=== PATIENT | male | born 1950 | race Caucasian/White ===

== ENCOUNTER 2016-06-11 14:45 | Inpatient (IN) ==
[2016-06-11] MEDS ORDERED: SODIUM CHLORIDE 0.9% 1,000 ML IV STA (17:23)
[2016-06-11 17:30] LABS: Apearance,Urine CLEAR (Clear); Bacteria,Urine Occasional /HPF (Few); Bilirubin,Urine Negative (Negative); Blood, Urine Negative (Negative); Glucose,Urine (UA) >=500 mg/dL (Negative); Ketones,Urine 20 mg/dL (Negative); Nitrite,Urine Negative (Negative); Protein,Urine Negative; RBC,Urine 1 /HPF (0-4); Urine Color Straw (Yellow); Urine Specific Gravity 1.024 (1.001-1.035); Urine Urobilinogen < 2.0 EU/DL (0.2-1.0); WBC,Urine <1 /HPF (0-6)
[2016-06-11 17:32] LABS: Basophils % 0.3 % (0.0-0.8); Eosinophils % 0.3 % (0.00-10.9); Hematocrit 45.9 VOL% (42.0-52.0); Hemoglobin 15.4 GM/DL (14.0-18.0); Immature Granulocytes % 0.5 %; Immature Granulocytes Absolute 0.05 #; Lymphocytes # 0.8 10*3/uL (1.4-4.0); Lymphocytes % 7.3 % (21.2-54.2); Mean Corpuscular HGB Conc 33.6 GM/DL (32-36); Mean Corpuscular Hemoglobin 29 PG (27-34); Mean Corpuscular Volume 86.3 FL (87-102); Mean Platelet Volume 10.4 FL (9.6-12.0); Monocytes # 0.4 10*3/uL (0.11-0.8); Monocytes % 3.6 % (1.7-12.7); Neutrophils # 9.3 10*3/uL (1.4-7.4); Platelet Count 273 10*3/uL (130-400); Red Blood Count 5.32 10*6/uL (3.8-5.5); Red Cell Distribution Width 13.2 % (9.3-17.3); White Blood Count 10.5 10*3/uL (4.5-13.71)
[2016-06-11 17:38] LABS: Barbiturates Screen,Urine Negative (Negative); Benzodiazepines Screen,Urine Negative (Negative); Cannabinoid Screen,Urine Negative (Negative); Opiate Screen,Urine Negative (Negative); Phencyclidine Screen,Urine Negative (Negative)
--- NOTE | 2016-06-11 17:53 | CT Report ---
CT head/brain wo con Indication: Altered metal status. CT BRAIN WITHOUT CONTRAST DLP: 1081 mGy*cm Comparison: Most recent 05/07/16. Date of admission: 06/11/2016. Technique: Axial noncontrast CT images of the brain were obtained. Findings: No acute hemorrhage, mass or mass effect. Generalized atrophy and patchy periventricular white matter hypodensity is present throughout both convexities. Cortical li-white junction and structures of the basal ganglia are well-defined. No bone lesions are shown. Internal auditory canals are symmetric. Mild mucosal thickening and postoperative changes both maxillary sinuses again shown. Impression: No acute intracranial pathology. Generalized atrophy and changes consistent with microvascular disease. Mild bilateral maxillary sinusitis. PROCEDURE INTERPRETED AT [facility] Final Report Signed by: Mikhail Enriquez M.D.
[2016-06-11 17:57] LABS: Albumin 3.8 G/DL (3.4-5.0); Bilirubin,Total 0.4 MG/DL (0.2-1.0); Calcium 8.9 MG/DL (8.5-10.1); Total Protein 7.1 G/DL (6.4-8.3)
[2016-06-11 17:58] LABS: Troponin I Only 0.016 NG/ML (0.00-0.045)
--- NOTE | 2016-06-11 19:35 | Emergency Department Note ---
Sal Almanza Brittany, am scribing for, and in the presence of, Benjamín Vega Jr., MD 15:19. Silvia Almanza Marvin Jr., MD, personally performed the services described in this documentation, ascribed by Kimberly Huang in my presence, and it is both accurate and complete 935 . Arrival - Arrival Chief Complaint: Altered Mental Status Stated Complaint: AMS ED Nursing Triage Note: Pt brought by EMS for pt being found this afternoon with altered mental status. Pt will respond to verbal stimuli. Mode of Arrival: Stretcher Limitations: Altered Mental Status Source: Patient, RN Notes Reviewed - History of Present Illness HPI Narrative: Patient is a 66 y/o white male presenting to the ED by EMS for further evaluation of Altered Mental Status. Per triage note patient was found unresponsive and EMS was called. Patient was brought in unresponsive, and in room patient is unresponsive and unable to provide much history. History is also limited due to no family being present to provides patient's history. During physical exam patient wakes up momentarily to say that he is having a headache and that he drinks "a little bit" of alcohol. While sleeping patient had a blood pressure of 179/104 and oxygen saturation of 94%. Patient appears to have the look of a chronic alcoholic. Patient has no other complaint/pain in the ED. Allergies/Adverse Reactions: Allergies Allergy/AdvReac Type Severity Reaction Status Date / Time No Known Allergies Allergy Verified 05/07/16 01:04 Home Medications: Home Medications Medication Instructions Recorded Confirmed Type Amlodipine Besylate/Benazepril 1 each PO DAILY 01/02/16 01/05/16 History [Amlodipine-Benazepril 10-40 mg] Gabapentin 300 mg PO BID 01/02/16 01/05/16 History Levothyroxine Tab [Synthroid Tab] 75 mcg PO DAILY 01/02/16 01/02/16 History hydroCHLOROthiazide 25 mg PO DAILY 01/02/16 01/05/16 History [Hydrochlorothiazide] Atorvastatin [Lipitor] 20 mg PO DAILY 01/05/16 01/05/16 History Insulin Detemir [Levemir] 14 unit SUBCUT DAILY #0 01/06/16 01/05/16 Rx Review of System - Review of System ROS unobtainable: due to mental status 12 point system: reviewed and no additional remarkable complaints except as stated - Review of System Neurological: Present: headache Medical,Surgical,& Family Hx - Medical History Cardio: History of: Hypertension Neurology: History of: Vertigo Endocrine: History of: Diabetes Mellitus (IDDM), Diabetes Mellitus (NIDDM) Respiratory: History of: Asthma (current, onset from smoke), Obstructive Sleep Apnea Genitourinary: History of: Prostate Problems (pt states sometimes have burning during urination) Musculoskeletal: History of: Back/Neck Problems (joint pains to hips and knees) No history of: Amputation Comment Only: Musculoskeletal Problems (history of falls) - Family History Family History: Reports;: Family Cancer (mother (kidneys) father (prostate)) - Social History Smoking Status: Former smoker Exam Physical Examination: General: Well-developed well-nourished, no apparent distress. She acts intoxicated. Eye sluggish, will follow commands but slowly, will talk with slurred speech but moves all his limbs. Head: Normocephalic, atraumatic. Eyes: PERRLA, EOMI. Nose: No obvious acute deformities or discharge. Mouth: No obvious acute injury. This membranes are dry Neck: Full range of motion without obvious pain. No midline tender to palpation. Lymphatic: no significant lymphadenopathy noted. Lungs: Clear to auscultation bilaterally, normal and equal air movement bilaterally, no obvious rales or wheezing. Heart: regular rate and rhythm, no obvious mummers. Abdomen: Soft nontender, nondistended, normal active bowel sounds. Skin: No obivous acute lesions noted Musculoskeletal: No gross deformities. Neurological: Slurring his speech but otherwise no focal neurological findings. Moves all limbs. Will follow some directions. Psychiatric: Intoxicated appearing : Deferred Vital Signs: Vital Signs Temperature 97.7 F 06/11/16 14:52 Pulse Rate 90 06/11/16 14:52 Respiratory Rate 22 06/11/16 14:52 Blood Pressure 183/107 06/11/16 14:52 O2 Sat by Pulse Oximetry 94 L 06/11/16 14:52 Course Course Narrative: Pharyngeal diagnosis: Alcohol or drug abuse, stroke, infection - Reevaluation(s) Reevaluation #1: I discussed this patient with the hospitalist who accepts this admission. They will come to the ER and see this patient Time: 19:35 Results - Labs CBC & BMP: 06/11/16 17:01 06/11/16 17:01 Lab Results: I have reviewed the patients labs Labs: Laboratory Tests 06/11/16 06/11/16 17:01 17:12 WBC 10.5 RBC 5.32 Hgb 15.4 Hct 45.9 MCV 86.3 L MCH 29 MCHC 33.6 RDW 13.2 Plt Count 273 MPV 10.4 Neut % (Auto) 88.0 H Lymph % (Auto) 7.3 L [place] % (Auto) 3.6 Eos % (Auto) 0.3 Baso % (Auto) 0.3 Neut # (Auto) 9.3 H Lymph # (Auto) 0.8 L [place] # (Auto) 0.4 Eos # (Auto) 0.0 Baso # (Auto) 0.0 Immature Gran % 0.5 Nucleated RBC % 0.0 Immature Gran # 0.05 Nucleated RBCs # 0.00 Urine Color Straw Urine Appearance Clear Urine pH 7.0 Ur Specific Marcus 1.024 Urine Protein Negative Urine Glucose (UA) >=500 Urine Ketones 20 Urine Blood Negative Urine Nitrate Negative Urine Bilirubin Negative Urine Urobilinogen < 2.0 H Urine Leukocytes Negative Urine RBC 1 Urine WBC <1 Urine Bacteria Occasional Laboratory Tests 06/11/16 17:12 Urine Opiates Screen Negative Ur Barbiturates Screen Negative Ur Phencyclidine Scrn Negative U Amphetamine/Methamph Positive H U Benzodiazepines Scrn Negative U Cocaine Metab Screen Negative U Cannabinoids Screen Negative Laboratory Tests 06/11/16 06/11/16 17:01 17:01 Sodium 136 Potassium 4.0 Chloride 102 Carbon Dioxide 26 Anion Gap 12.0 BUN 15 Creatinine 0.70 GFR Calculation 112 BUN/Creatinine Ratio 21.00 H Glucose 206 H Calculated Osmolality 278.0 Calcium 8.9 Total Bilirubin 0.40 AST 9 ALT 13 L Alkaline Phosphatase 119 H Troponin I 0.016 Total Protein 7.1 Albumin 3.8 Globulin 3.3 Albumin/Globulin Ratio 1.1 Serum Alcohol < 15 L - Diagnostic Findings Procedure: CT: report reviewed by me, image reviewed by me (head: No acute intracranial pathology. Generalized atrophy and changes consistent with microvascular disease. Mild bilateral maxillary sinusitis. I also reviewed the CT) Disposition Clinical Impression: Altered mental status NOS, Substance abuse, Poorly controlled diabetes mellitus , Elevated liver enzymes, Poorly-controlled hypertension Case discussed with: patient Disposition: Still a Patient Condition: Stable Time of Disposition: 19:35
[2016-06-11] MEDS ORDERED: niCARdipine INJ 25 MG in SODIUM CHLORIDE 0.9% 240 ML IV SCH (20:22)
[2016-06-11] MEDS ORDERED: ONDANSETRON 4 MG/2 ML VIAL IV PRN (20:22)
[2016-06-11] MEDS: ENOXAPARIN 40 MG/0.4 ML SYRINGE SUBCUT SCH (20:44)
[2016-06-11] MEDS: FAMOTIDINE 20 MG/2 ML VIAL IV SCH (20:44)
[2016-06-11] MEDS: SODIUM CHLORIDE 0.9% 1,000 ML IV SCH (20:44)
--- NOTE | 2016-06-11 23:52 | Hospitalist History & Physical ---
Assessment and Plan (1) Altered mental status Status: Acute Assessment and plan: The patient appears to have another spell of altered mental status on account of drug abuse. He will be admitted to intensive care unit for monitoring. Cardene will be ordered to control blood pressure. I anticipate improvement over the next 24 hours Current Visit: No Qualifiers: Altered mental status type: delirium Qualified Code(s): R41.0 - Disorientation, unspecified (2) Hyperkalemia Status: Acute Current Visit: No (3) Drug-induced encephalopathy Status: Resolved Current Visit: No History of Present Illness Chief complaint: altered mental status History of present illness: Mr. Willoughby is a 66 year old male with history of amphetamine abuse. The patient has 2 previous episodes similar to this one. The patient presents disoriented and somnolent. He is hypertensive. On 2 previous occasions with supportive care blood pressure normalized and the patient awoke after 18 hours to have normal mental status. On each occasion the patient had shown amphetamines on drug screen of urine that he has always denied drug abuse. On this occasion the patient's symptoms are moderate, continuous, and improving with time. The patient does not have any shortness of breath, fever, chills. Home Medications Medication Instructions Recorded Confirmed Type Levothyroxine Tab [Synthroid Tab] 75 mcg PO DAILY 01/02/16 06/11/16 History hydroCHLOROthiazide 25 mg PO DAILY 01/02/16 06/11/16 History [Hydrochlorothiazide] Amlodipine Besylate/Benazepril 1 mg PO DAILY 06/11/16 06/11/16 History [Amlodipine-Benazepril 10-40 mg] Canagliflozin/Metformin HCl 1 tablet PO BID 06/11/16 06/11/16 History [Invokamet 150-1,000 mg Tablet] Insulin Detemir [Levemir] 40 unit SUBCUT DAILY 06/11/16 06/11/16 History Allergies Allergy/AdvReac Type Severity Reaction Status Date / Time No Known Allergies Allergy Verified 05/07/16 01:04 Medical,Surgical,& Family Hx - Medical History Cardio: History of: Hypertension Neurology: No history of: Vertigo Endocrine: History of: Diabetes Mellitus (NIDDM) Respiratory: History of: Asthma (current, onset from smoke), Obstructive Sleep Apnea Genitourinary: History of: Prostate Problems (pt states sometimes have burning during urination) Musculoskeletal: History of: Back/Neck Problems (joint pains to hips and knees) No history of: Amputation Comment Only: Musculoskeletal Problems (history of falls) - Surgical History HEENT Surgeries: Surgical HX of: Tonsilectomy & Adenoidectomy Orthopedic Surgeries: Surgical HX of;: Orthopedic Surgery - Family History Family History: Reports;: Family Cancer (mother (kidneys) father (prostate)) - Social History Smoking Status: Former smoker Type of Drug Use: Methamphetamine Marital Status: Lives With:: Alone Functional capacity: independent ambulation 12 point system: reviewed and no additional remarkable complaints except as stated Exam - Constitutional Vitals: Period Temp Pulse Resp BP Sys/Persaud Pulse Ox Last 24 Hr 91-97 18-28 168-192/96-107 93-97 Exam: Constitutional System: Mild distress. No tremulousness. The patient is more alert by the hour Head: Normocephalic, atraumatic. Ears, Nose and Throat System: No evidence of Otitis or Mastoiditis. No epistaxis or discharge Eyes System: Pupils equal, round, and reactive. Extraocular muscles intact. Neck: Supple, without adenopathy, No jugular venous distention. No thyromegaly , neck mass, or prior surgery apparent. Respiratory System: Chest clear to auscultation. Cardiovascular System: Heart with regular rate and rhythm. No murmur. GI System: Abdomen soft, nontender. Normoactive bowel sounds present. Musculoskeletal System: limbs with no pedal edema. Full distal pulses. Neurological System: No discernable sensory deficit. No aphasia Psychiatric System: Conversation is irrational Results - Labs CBC & BMP: 06/11/16 17:01 06/11/16 17:01 Lab Results: I have reviewed the past 24 hour labs
[2016-06-12 04:02] LABS: ABG Base Excess -1.4 MMOL/L (-2.5-2.5); ABG HCO3 23.2 MMOL/L (20-26); ABG Oxygen Saturation 96.3 % (95-100); ABG PH 7.407 (7.35-7.45); ABG PO2 80.4 MM HG (80-95); ABG TCO2 19.3 MMOL/L (23-27); Pt O2 Delivery Device Room Air
[2016-06-12 05:18] LABS: Basophils % 0.3 % (0.0-0.8); Eosinophils % 0.3 % (0.00-10.9); Hemoglobin 14.4 GM/DL (14.0-18.0); Immature Granulocytes % 0.1 %; Immature Granulocytes Absolute 0.01 #; Lymphocytes # 1.7 10*3/uL (1.4-4.0); Mean Corpuscular HGB Conc 33.5 GM/DL (32-36); Mean Corpuscular Hemoglobin 29 PG (27-34); Mean Platelet Volume 9.3 FL (9.6-12.0); Monocytes # 0.4 10*3/uL (0.11-0.8); Monocytes % 5.1 % (1.7-12.7); Neutrophils # 5.3 10*3/uL (1.4-7.4); Neutrophils % 71.2 % (38.7-73.9); Platelet Count 271 10*3/uL (130-400); Red Cell Distribution Width 13.2 % (9.3-17.3); White Blood Count 7.5 10*3/uL (4.5-13.71)
[2016-06-12 06:00] LABS: Calcium 8.7 MG/DL (8.5-10.1); Magnesium 1.8 MG/DL (1.8-2.4); Osmolality,Calculated 281.4 MOS/KG (273-304); Potassium 3.8 MMOL/L (3.5-5.1); Troponin I Only 0.018 NG/ML (0.00-0.045)
[2016-06-12] MEDS: SODIUM CHLORIDE 0.9% 1,000 ML IV SCH ×2 (06:43→16:47)
--- NOTE | 2016-06-12 07:43 | EKG Report ---
Stationary ECG Study [facility] Test Date: 06/12/2016 7:42:28 AM Pat Name: LORIN MORIN Department: Room: 129 Gender: M [employer] Sewing Machine Operator: FLORI : 1950 Requested by: Robert Jovel Order Number: [id number] Reading MD: LISA MONTEIRO Intervals [place] Rate: 91 P: 18 CA: 170 QRS: 58 QRSD: 108 T: 66 QT: 379 QTc: 428 Interpretive Statements SINUS RHYTHM Electronically Signed On 06-12-16 21:58:03 EDGE [employer]ITCHER by LISA MONTEIRO [email or web address]
[2016-06-12] MEDS: FAMOTIDINE 20 MG/2 ML VIAL IV SCH ×2 (09:10→20:25)
[2016-06-12] MEDS: PANTOPRAZOLE 40 MG TABLET PO SCH (09:10)
--- NOTE | 2016-06-12 10:29 | Hospitalist Progress Note ---
Assessment and Plan (1) Altered mental status Status: Acute Assessment and plan: due to drug abuse, CT head was negative.Will get BC, UC Current Visit: No Qualifiers: Altered mental status type: delirium Qualified Code(s): R41.0 - Disorientation, unspecified (2) HTN (hypertension) Status: Acute Assessment and plan: on cardene ggt Current Visit: Yes (3) Diabetes Status: Acute Assessment and plan: will get HbA1c level, place on SSC Current Visit: No (4) Hypothyroidism Status: Acute Assessment and plan: will get a TSH, resume home supplements. Current Visit: Yes Hospitalist: Subjective Interval history: Patient seen this am, he was oriented in time, place and person. Exam - Constitutional Vitals: Period Temp Pulse Resp BP Sys/Persaud Pulse Ox Last 24 Hr 98.9 F-99.4 F 84-107 15-28 95-192/49-107 90-97 General appearance: no acute distress - Head Head exam: Present: normal inspection - Neck Neck exam: Present: normal inspection - Respiratory Respiratory exam: Present: clear to auscultation bilaterally - Cardiovascular Cardiovascular exam: Present: regular rate and rhythm - GI/Abdominal GI/Abdominal exam: Present: normal bowel sounds - Extremities Exam Extremities exam: Present: normal inspection Results - Labs CBC & BMP: 06/12/16 05:07 06/12/16 05:07 Lab Results: I have reviewed the past 24 hour labs
[2016-06-12] MEDS ORDERED: DEXTROSE 50% 25 GM/50 ML VIAL IV PRN (10:32)
[2016-06-12] MEDS ORDERED: GLUCAGON 1 MG VIAL IM PRN (10:32)
[2016-06-12] MEDS: LEVOTHYROXINE 75 MCG TABLET PO SCH (13:28)
[2016-06-12] MEDS: hydroCHLOROthiazide 25 MG TABLET PO SCH (17:17)
[2016-06-12] MEDS: INSULIN REGULAR 100 UNIT/ML SUBCUT SCH (17:17)
[2016-06-12] MEDS: ENOXAPARIN 40 MG/0.4 ML SYRINGE SUBCUT SCH (20:25)
[2016-06-12] MEDS ORDERED: NIFEdipine 10 MG CAPSULE PO PRN (20:48)
[2016-06-13] MEDS: INSULIN REGULAR 100 UNIT/ML SUBCUT SCH ×3 (00:10→12:08)
[2016-06-13] MEDS: SODIUM CHLORIDE 0.9% 1,000 ML IV SCH ×2 (02:40→12:28)
[2016-06-13 04:49] LABS: Basophils % 0.4 % (0.0-0.8); Eosinophils # 0.1 10*3/uL (0.0-0.87); Eosinophils % 1.3 % (0.00-10.9); Hematocrit 43.4 VOL% (42.0-52.0); Hemoglobin 14.5 GM/DL (14.0-18.0); Immature Granulocytes % 0.3 %; Immature Granulocytes Absolute 0.03 #; Lymphocytes # 1.9 10*3/uL (1.4-4.0); Lymphocytes % 20.2 % (21.2-54.2); Mean Corpuscular HGB Conc 33.4 GM/DL (32-36); Mean Corpuscular Hemoglobin 29 PG (27-34); Mean Corpuscular Volume 86.1 FL (87-102); Monocytes # 0.6 10*3/uL (0.11-0.8); Monocytes % 6.9 % (1.7-12.7); Neutrophils # 6.5 10*3/uL (1.4-7.4); Neutrophils % 70.9 % (38.7-73.9); Platelet Count 255 10*3/uL (130-400); Red Blood Count 5.04 10*6/uL (3.8-5.5); Red Cell Distribution Width 13.2 % (9.3-17.3); White Blood Count 9.2 10*3/uL (4.5-13.71)
[2016-06-13 05:16] LABS: Calcium 8.8 MG/DL (8.5-10.1); Osmolality,Calculated 281.4 MOS/KG (273-304); Potassium 3.4 MMOL/L (3.5-5.1)
[2016-06-13] MEDS: FAMOTIDINE 20 MG/2 ML VIAL IV SCH (08:38)
[2016-06-13] MEDS: LEVOTHYROXINE 75 MCG TABLET PO SCH (08:39)
[2016-06-13] MEDS: PANTOPRAZOLE 40 MG TABLET PO SCH (08:39)
[2016-06-13] MEDS: hydroCHLOROthiazide 25 MG TABLET PO SCH (08:39)
--- NOTE | 2016-06-13 10:10 | Discharge Summary ---
Hospital Course - Hospital Course Hospital Course: Mr. Willoughby is a 66 year old male with history of amphetamine abuse with multiple admissions for overdose. He was brought in for evaluation of disorientation, and somnolence and hypertension.His UDS was positive for amphetamines,CT head was negative. He was started on cardene drip, admitted to the unit/. EKG showed sinus rythm at 91bpm.Urine culture was negative, blood pressure improved. Patient became more alert, oriented in time place and person and was requesting to go home.His blood sugar was controlled and his home meds were resumed and patient also got some IVF.This am, his vitals were stable and he is ready to be dcd. He will benefit from an outpatient rehab. - Time spent with patient Time with patient DS: Greater than 30 minutes Diagnosis - Discharge Diagnosis (1) Altered mental status Status: Acute (2) HTN (hypertension) Status: Acute (3) Diabetes Status: Acute (4) Hypothyroidism Status: Acute Discharge Plan - Discharge Data Disposition: Disch To Home/Self Care Condition at Discharge: Stable Discharge Diet: diabetic diet - Discharge Medications Continue hydroCHLOROthiazide [Hydrochlorothiazide] 25 mg PO DAILY Levothyroxine Tab [Synthroid Tab] 75 mcg PO DAILY Amlodipine Besylate/Benazepril [Amlodipine-Benazepril 10-40 mg] 1 mg PO DAILY Insulin Detemir [Levemir] 40 unit SUBCUT DAILY Canagliflozin/Metformin HCl [Invokamet 150-1,000 mg Tablet] 1 tablet PO BID - Follow Up or Referral - Forms/Instructions Additional Discharge Instructions: follow PCP in 1week. Outpatient rehab for drug abuse Exam - Constitutional Vitals: Period Temp Pulse Resp BP Sys/Persaud Pulse Ox Last 24 Hr 97.9 F-99.0 F 64-103 18-91 123-202/64-129 90-98 General appearance: no acute distress - Head Head exam: Present: normal inspection - Respiratory Respiratory exam: Present: clear to auscultation bilaterally - Cardiovascular Cardiovascular exam: Present: regular rate and rhythm - GI/Abdominal GI/Abdominal exam: Present: normal bowel sounds - Extremities Exam Extremities exam: Present: normal inspection Discharge Results Procedures and tests throughout hospitalization: Pending Orders 06/12/16 11:01 Blood Culture Routine TSH, Sensitive, S Routine 06/12/16 16:00 Urine Culture Routine Labs on day of discharge: Labs from last 24 hours 06/13/16 06/13/16 06/13/16 06:31 04:39 04:39 WBC 9.2 RBC 5.04 Hgb 14.5 Hct 43.4 MCV 86.1 L MCH 29 MCHC 33.4 RDW 13.2 Plt Count 255 MPV 9.0 L Neut % (Auto) 70.9 Lymph % (Auto) 20.2 L Wright % (Auto) 6.9 Eos % (Auto) 1.3 Baso % (Auto) 0.4 Neut # (Auto) 6.5 Lymph # (Auto) 1.9 Wright # (Auto) 0.6 Eos # (Auto) 0.1 Baso # (Auto) 0.0 Immature Gran % 0.3 Nucleated RBC % 0.0 Immature Gran # 0.03 Nucleated RBCs # 0.00 Sodium 140 Potassium 3.4 L Chloride 106 Carbon Dioxide 26 Anion Gap 11.4 BUN 12 Creatinine 0.70 GFR Calculation 119 BUN/Creatinine Ratio 17.00 Glucose 147 H POC Glucose 182 H Hemoglobin A1c Calculated Osmolality 281.4 Calcium 8.8 06/13/16 06/12/16 06/12/16 00:00 16:57 11:39 WBC RBC Hgb Hct MCV MCH MCHC RDW Plt Count MPV Neut % (Auto) Lymph % (Auto) Wright % (Auto) Eos % (Auto) Baso % (Auto) Neut # (Auto) Lymph # (Auto) Wright # (Auto) Eos # (Auto) Baso # (Auto) Immature Gran % Nucleated RBC % Immature Gran # Nucleated RBCs # Sodium Potassium Chloride Carbon Dioxide Anion Gap BUN Creatinine GFR Calculation BUN/Creatinine Ratio Glucose POC Glucose 196 H 226 H 206 H Hemoglobin A1c Calculated Osmolality Calcium 06/12/16 10:42 WBC RBC Hgb Hct MCV MCH MCHC RDW Plt Count MPV Neut % (Auto) Lymph % (Auto) Wright % (Auto) Eos % (Auto) Baso % (Auto) Neut # (Auto) Lymph # (Auto) Wright # (Auto) Eos # (Auto) Baso # (Auto) Immature Gran % Nucleated RBC % Immature Gran # Nucleated RBCs # Sodium Potassium Chloride Carbon Dioxide Anion Gap BUN Creatinine GFR Calculation BUN/Creatinine Ratio Glucose POC Glucose Hemoglobin A1c 8.2 H Calculated Osmolality Calcium Preliminary micro results at discharge 06/12/16 16:00 Urine Culture - Preliminary Urine,Voided No Growth at 12 hours. DS: Provider Date of admission: 06/11/16 19:45 Primary care physician: . No PCP Attending physician on admission: Mel Stone MD Discharging clinician: Mel Stone MD
[2016-06-13] MEDS ORDERED: POTASSIUM CHLORIDE 20 MEQ/15 ML UDCUP PO ONE (10:12)
[2016-06-13] MEDS ORDERED: INFLUENZA VIRUS VACCINE 0.5 ML SYRINGE IM ONE (12:30)
[2016-06-13 16:29] VITALS: BP 145/83
--- NOTE | 2016-06-15 07:01 | Physician Query Form ---
CLICK EDIT DOCUMENT TO SELECT QUERY ANSWER --> OK --> SIGN Keiry House RN, CCDS Certified Clinical Fashion Director [employer] W) [phone] (f) [phone] [email or web address] PROVIDERS: Make your selection(s) from the choices in EACH section by typing an "x" and enter comments in the comment section. Please use your independent medical judgment in providing your response. This request does not imply that any particular answer is desired or expected. CLINICAL INDICATORS: (Providers should not edit this section) The medical record indicates that the patient was admitted with a drug OD, BP of 183/107 and the patient was placed in the unit with a Cardene drip. Note: Hypertensive crises can present as hypertensive urgency or hypertensive emergency. Clarify which, if any of the following, is a more accurate diagnosis reflecting the type and acuity of the documented hypertension: TYPE: ( x) Hypertensive Urgency ( ) Hypertensive Emergency ( ) Uncontrolled chronic hypertension at baseline ( ) Other, please specify: ( ) Clinically unable to determine Criteria Source - Up to Date (This topic last updated: Jul 16, 2015) HYPERTENSIVE URGENCY: Severe hypertension (usually a diastolic blood pressure above 120 mmHg) in asymptomatic patients is referred to as hypertensive urgency. There is no proven benefit from rapid reduction in blood pressure in asymptomatic patients who have no evidence of acute end-organ damage and are at little short-term risk. HYPERTENSIVE EMERGENCY: Severe hypertension (usually a diastolic blood pressure above 120 mmHg) with evidence of acute end-organ damage is defined as a hypertensive emergency. A hypertensive emergency can be life threatening and requires immediate treatment, usually with parenteral medications in a monitored setting. COMMENTS: Use of terms such as suspected, likely, or probable (associated with a specific diagnosis that is being evaluated, monitored, or treated as if it exists) are acceptable and can be restated in the discharge summary if not ruled out. MTDD
== END 2016-06-13 17:00 | disposition home or self-care (01) | DRG 917 ==
LOC: EDUNIT# → EDBD → N.ED 14:45 → N.EDINP 19:45 → N.CC 20:20
PROVIDERS: ADMIT Internal Medicine; ATTEND Internal Medicine